=== PATIENT | female | born 1980 | race Asian ===

== ENCOUNTER 2016-10-14 17:01 | Emergency (ER) | payer SELFPAY ==
[~2016-10-14] VITALS: Ht 154.9 cm; Wt 45.8 kg
[2016-10-14 17:20] VITALS: BP 110/71
[2016-10-14] MEDS ORDERED: IBUP-1007 PO (17:43)
[2016-10-14] MEDS ORDERED: CEPH500T PO (17:43)
--- NOTE | 2016-10-14 17:44 | PHYS DOC ---
Past Medical History Past Medical History: Other Additional Past Medical Histor: malaria Past Surgical History: No Surgical History Alcohol Use: None Drug Use: None Adult General Chief Complaint Chief Complaint: BREAST PAIN/INJURY HPI HPI Patient is a 35 year old female presenting with right breast pain for couple days. Patient is breast-feeding. Patient denies any fever. Denies any unusual drainage from the breast. Denies any chance she is Interpretation was provided by the son for their [place] language. Review of Systems Review of Systems Constitutional: Denies fever or chills [] Musculoskeletal: Denies back pain or joint pain [] Integument: Right breast pain Neurologic: Denies headache, focal weakness or sensory changes [] Allergies Allergies Allergies Coded Allergies Type Severity Reaction Last Updated Verified No Known Drug Allergies 05/04/13 No Physical Exam Physical Exam Constitutional: Well developed, well nourished, no acute distress, non-toxic appearance. [] Skin: Right breast with palpable small mass at 10 o'clock position with tenderness over the mass. No unusual drainage from the area. The areas feels warm Back: No tenderness, no CVA tenderness. [] Extremities: No tenderness, no cyanosis, no clubbing, ROM intact, no edema. [] Neurologic: Alert and oriented X 3, normal motor function, normal sensory function, no focal deficits noted. [] Psychologic: Affect normal, judgement normal, mood normal. [] Current Patient Data Vital Signs Vital Signs Date Time Temp Pulse Resp B/P (MAP) Pulse Ox O2 Delivery O2 Flow Rate FiO2 10/14/16 17:20 97.9 70 20 96 Room Air 97.9 Lab Values Laboratory Tests Test 10/14/16 16:43 POC Urine HCG, Qualitative Hcg negative (Negative) EKG EKG [] Radiology/Procedures Radiology/Procedures [] Course & Med Decision Making Course & Med Decision Making Pertinent Labs and Imaging studies reviewed. (See chart for details) This is a 35-year-old female patient presenting with right breast pain. She is breast-feeding. Symptoms suspicious of mastitis. Discharge and cephalexin. Tylenol/ Motrin for pain. Follow-up with [facility] in one week. Dragon Disclaimer Dragon Disclaimer This electronic medical record was generated, in whole or in part, using a voice recognition dictation system. Departure Departure Impression: Primary Impression: Mastitis in female Disposition: 01 HOME, SELF-CARE Condition: STABLE Referrals: NON,STAFF (PCP) follow up with your OBGYN doctor next week Patient Instructions: , Mastitis Additional Instructions: You were seen for mastitis. Please complete your antibiotics. Follow-up with your [facility] in one week. Take Tylenol or Motrin for pain Scripts Cephalexin (CEPHALEXIN) 500 Mg Tablet 1 TAB PO QID, #40 TAB Prov: LUCHO YOUSSEF APRN 10/14/16 Ibuprofen (IBUPROFEN) 600 Mg Tablet 600 MG PO PRN Q6HRS Y for INFLAMMATION, #20 TAB Prov: LUCHO YOUSSEF APRN 10/14/16 LUCHO YOUSSEF APRN Oct 14, 2016 17:44
== END 2016-10-14 17:47 | disposition home or self-care (01) ==
LOC: ER 17:01
DX: N61.0 Mastitis without abscess (principal); N64.4 Mastodynia
CPT/HCPCS: 81025; 99283

== ENCOUNTER → 2019-08-12 | Outpatient (CLI) | payer OTHER ==
[~2019-08-12] MED LIST: CEPH500T PO; IBUP-1007 PO
--- NOTE | 2019-08-12 17:19 | RAD ---
EXAM: Obstetrics sonogram. HISTORY: Size and dates discrepancy. TECHNIQUE: Sonographic imaging of a gravid uterus was performed. COMPARISON: None. FINDINGS: There is a single imaging fetus in cephalic presentation with a normal heart rate of 140 bpm. There is a three-vessel umbilical cord with normal insertion. There is a posterior placenta without evidence of placenta previa. The cervix is closed and measures 4.0 cm in length. The anatomic fluid index is normal at 17.5 cm. The stomach, kidneys, bladder, spine, brain, and heart are unremarkable. The facial profile is not well seen due to presentation. The biparietal diameter is 7.0 cm, corresponding with 20 weeks and 1 day. The head circumference is 25.2 cm, corresponding with 27 weeks and 3 days. The abdominal circumference is 23.38 cm, corresponding with 27 weeks and 5 days. The femoral length is 5.31 cm, corresponding with 28 weeks and 1 day. The estimated gestational age patient combined ultrasound measurements is 27 weeks and 6 days and the estimated weight is 1140 g. The estimated due date is 11/05/2019. IMPRESSION: 1. Single intrauterine fetus with normal heart rate and gestational age patient also measurements of 27 weeks and 6 days. 2. Suboptimal evaluation of the facial profile due to presentation. The remainder the anatomy survey is unremarkable. Electronically signed by: Nayana Haney MD (08/12/2019 5:16 PM) [facility]
== END | disposition home or self-care (01) ==
LOC: US 16:06
PROVIDERS: ATTEND Obstetrics & Gynecology
DX: O26.842 Uterine size-date discrepancy, second trimester (principal); O09.521 Supervision of elderly multigravida, first trimester; Z3A.27 27 weeks gestation of pregnancy
CPT/HCPCS: 76805